=== PATIENT | female | born 1965 | race Caucasian/White ===

== ENCOUNTER 2018-10-27 16:30 | Outpatient (REF) | payer BC, SELFPAY ==
[2018-10-27 22:35] LABS: ALT 20 U/L (12-78); AST 15 U/L (15-37); Albumin 4.1 g/dL (3.4-5.0); Alkaline Phosphatase 74 U/L (46-116); Bilirubin, Total 0.4 mg/dL (0.2-1.0); Total Protein 7.3 g/dL (6.4-8.2)
== END 2018-10-27 16:50 ==
LOC: NCHCN 16:30
PROVIDERS: PCP Family Medicine; Visit Provider Registered Nurse
DX: B35.1 Tinea unguium (principal)
CPT/HCPCS: 80076

== ENCOUNTER 2018-11-30 12:30 | Outpatient (REF) | payer BC, SELFPAY ==
[2018-11-30 21:39] LABS: ALT 22 U/L (12-78); AST 14 U/L (15-37); Albumin 3.9 g/dL (3.4-5.0); Alkaline Phosphatase 73 U/L (46-116); Bilirubin, Direct 0.15 mg/dL (0.00-0.20); Bilirubin, Total 0.5 mg/dL (0.2-1.0); Total Protein 7.3 g/dL (6.4-8.2)
== END 2018-11-30 12:50 ==
LOC: NCHCN 12:30
PROVIDERS: PCP Family Medicine; Visit Provider Registered Nurse
DX: B35.1 Tinea unguium (principal)
CPT/HCPCS: 80076

== ENCOUNTER 2019-02-11 10:05 | Outpatient (REF) | payer MEDICAID, SELFPAY ==
[2019-02-11 22:16] LABS: Hemoglobin A1C 5.7 % (4.5-6.2)
--- NOTE | 2019-02-12 | PAPFT_PTH ---
PATIENT: Prudence Obrien LOC: [facility] U#:[id number] AGE/SX: 53/F ROOM: RE02/11/[address]: Ashley Carney : 1965 BED: DIS: 02/11/2019 SPEC #: [id number] RECD: 02/12/19 12:46 STATUS: CUONG REQ #: [id number] CHARLES: 02/12/19 00:[address]: Ashley Carney DEPT: [facility] Cytology RECD BY: Kim Copeland Tissues: 1 - CX/ENDOCX FOR PAP SMEARS Procedures: PAP THIN PREP/[facility] Screening HPV DNA PROBE Comments: [id number]
== END 2019-02-11 10:25 ==
LOC: NCHCN 10:05
PROVIDERS: PCP Family Medicine; Visit Provider Family Medicine
DX: Z00.00 Encounter for general adult medical examination without abnormal findings (principal); E66.01 Morbid (severe) obesity due to excess calories; Z13.1 Encounter for screening for diabetes mellitus; Z12.4 Encounter for screening for malignant neoplasm of cervix; Z11.51 Encounter for screening for human papillomavirus (HPV)
CPT/HCPCS: 82306; 88142; 83036; 87624

== ENCOUNTER 2020-02-15 23:07 | Outpatient (REF) | payer MEDICAID, SELFPAY ==
[2020-02-15 21:25] LABS: Hemoglobin A1C 5.5 % (<5.7)
[2020-02-15 21:41] LABS: ALT 28 U/L (14-59); AST 15 U/L (15-37); Alkaline Phosphatase 78 U/L (46-116); Anion Gap 7.4 mmol/L (3-11); BUN 11 mg/dL (7-18); Bilirubin, Total 0.5 mg/dL (0.2-1.0); CO2 29.6 mmol/L (21.0-32.0); CREATININE 0.91 mg/dL (0.55-1.02); Calcium 9.4 mg/dL (8.5-10.1); Chloride 103 mmol/L (98-107); Glucose 95 mg/dL (74-106); Potassium 4.1 mmol/L (3.5-5.1); Sodium 140 mmol/L (136-145); TSH 19.27 uIU/mL (0.36-3.74); Total Protein 7.3 g/dL (6.4-8.2)
[2020-02-17 05:18] LABS: Vitamin D 25 Total 12.3 ng/ml (30-100)
== END 2020-02-15 23:27 ==
LOC: NCHCN 23:07
PROVIDERS: PCP Family Medicine; Visit Provider Family Medicine
DX: E11.9 Type 2 diabetes mellitus without complications (principal); E55.9 Vitamin D deficiency, unspecified; Z13.220 Encounter for screening for lipoid disorders
CPT/HCPCS: 80053; 82306; 83036; 84443

== ENCOUNTER 2020-03-20 09:13 | Outpatient (REF) | payer MEDICAID, SELFPAY ==
[2020-03-20 21:58] LABS: TSH 4.17 uIU/mL (0.36-3.74)
== END 2020-03-20 09:33 ==
LOC: NCHCN 09:13
PROVIDERS: PCP Family Medicine; Visit Provider Family Medicine
DX: E03.9 Hypothyroidism, unspecified (principal)
CPT/HCPCS: 84443

== ENCOUNTER 2020-06-05 15:47 | Outpatient (REF) | payer MEDICAID, SELFPAY ==
[2020-06-05 14:40] LABS: TSH 4.06 uIU/mL (0.36-3.74)
== END 2020-06-05 15:48 | disposition home or self-care (01) ==
LOC: NCHCN 15:47
PROVIDERS: PCP Family Medicine; Visit Provider Family Medicine
DX: E03.9 Hypothyroidism, unspecified (principal)
CPT/HCPCS: 84443

== ENCOUNTER 2020-07-11 02:46 | Outpatient (CLI) | payer MEDICAID, SELFPAY | END 2020-07-11 02:47 | disposition home or self-care (01) | LOC: LBO 02:46 | PROVIDERS: PCP Family Medicine; Visit Provider Family Medicine | DX: E03.9 Hypothyroidism, unspecified (principal); Z01.83 Encounter for blood typing | CPT/HCPCS: 36415; 86900; 86901 ==

== ENCOUNTER 2020-10-02 15:44 | Outpatient (REF) | payer MEDICAID, SELFPAY ==
[2020-10-02 14:25] LABS: TSH 2.77 uIU/mL (0.36-3.74)
== END 2020-10-02 15:45 | disposition home or self-care (01) ==
LOC: NCHCN 15:44
PROVIDERS: PCP Family Medicine; Visit Provider Family Medicine
DX: E03.9 Hypothyroidism, unspecified (principal)
CPT/HCPCS: 84443

== ENCOUNTER 2021-02-20 12:29 | Outpatient (REF) | payer MEDICAID, SELFPAY ==
[2021-02-20 15:19] LABS: Calculated LDL 130 mg/dL (<100); Cholesterol 219 mg/dL (<200); HDL Cholesterol 67 mg/dL (40-60); Triglyceride 112 mg/dL (<150)
[2021-02-20 15:49] LABS: Hemoglobin A1C 5.7 % (<5.7)
== END 2021-02-20 12:30 | disposition home or self-care (01) ==
LOC: NCHCN 12:29
PROVIDERS: PCP Family Medicine; Visit Provider Family Medicine
DX: E55.9 Vitamin D deficiency, unspecified (principal); E66.01 Morbid (severe) obesity due to excess calories; Z13.1 Encounter for screening for diabetes mellitus; Z13.220 Encounter for screening for lipoid disorders; Z00.00 Encounter for general adult medical examination without abnormal findings
CPT/HCPCS: 80061; 83036; 84702

== ENCOUNTER 2022-05-07 15:25 | Outpatient (REF) | payer MEDICAID, SELFPAY ==
[2022-05-07 15:40] LABS: Calculated LDL 119 mg/dL (<100); Cholesterol 217 mg/dL (<200); HDL Cholesterol 80 mg/dL (40-60); TSH 4.71 uIU/mL (0.36-3.74); Triglyceride 94 mg/dL (<150)
== END 2022-05-07 15:26 | disposition home or self-care (01) ==
LOC: NCHCN 15:25
PROVIDERS: PCP Family Medicine; Visit Provider Family Medicine
DX: E03.9 Hypothyroidism, unspecified (principal); Z13.220 Encounter for screening for lipoid disorders
CPT/HCPCS: 80061; 84443

== ENCOUNTER 2022-05-15 09:45 | Outpatient (REF) | payer MEDICAID, SELFPAY ==
[2022-05-15 15:46] LABS: Anion Gap 5.2 mmol/L (3-11); BUN 10 mg/dL (7-18); CO2 24.8 mmol/L (21.0-32.0); Chloride 103 mmol/L (98-107); Glucose 102 mg/dL (74-106); Potassium 3.9 mmol/L (3.5-5.1); Sodium 133 mmol/L (136-145)
== END 2022-05-15 09:46 | disposition home or self-care (01) ==
LOC: NCHCN 09:45
PROVIDERS: PCP Family Medicine; Visit Provider Family Medicine
DX: E03.9 Hypothyroidism, unspecified (principal); E66.01 Morbid (severe) obesity due to excess calories; Z79.899 Other long term (current) drug therapy
CPT/HCPCS: 80048

== ENCOUNTER 2022-08-12 14:04 | Outpatient (REF) | payer MEDICAID, SELFPAY ==
[2022-08-12 22:29] LABS: TSH 2.18 uIU/mL (0.36-3.74)
== END 2022-08-12 14:05 | disposition home or self-care (01) ==
LOC: NCHCN 14:04
PROVIDERS: PCP Family Medicine; Visit Provider Family Medicine
DX: E03.9 Hypothyroidism, unspecified (principal)
CPT/HCPCS: 84443

== ENCOUNTER → 2023-04-23 00:55 | Outpatient (CLI) | payer BC, SELFPAY ==
--- NOTE | 2023-04-23 07:30 | DI.RAD_ITS ---
Exam(s) XR FOOT LT COMPLETE EXAM: XR FOOT LT COMPLETE CLINICAL HISTORY: Left foot pain,[id number]. TECHNIQUE: 2D digital imaging was performed. Three views. COMPARISON: No exams were available for comparison FINDINGS: BONES: No acute fracture is present. No bony destructive lesion is seen. Plantar calcaneal spur. JOINTS: No dislocation present. Minimal degenerative changes . Plantar arch is maintained. SOFT TISSUE: Normal. IMPRESSION: Heel spur. Minimal degenerative changes. DATA REPOSITORY: RADIATION DOSE DELIVERED:
== END ==
PROVIDERS: PCP Family Medicine; Visit Provider Podiatrist
DX: M79.672 Pain in left foot (principal); M77.32 Calcaneal spur, left foot
CPT/HCPCS: 73630

== ENCOUNTER 2023-05-08 14:07 | Outpatient (REF) | payer BC, SELFPAY ==
--- NOTE | 2023-05-08 09:30 | PAPFT_PTH ---
PATIENT: Prudence Obrien LOC: LOCATED WITHIN [facility]#:[id number] AGE/SX: 58/F ROOM: RE05/08/[address]: Thuy Lucero : 1965 BED: DIS: 05/08/2023 SPEC #: [id number] RECD: 05/08/23 17:49 STATUS: CUONG REAntonietta #: [id number] CHARLES: 05/08/23 09:[address]: Thuy Webster DEPT: [facility] Cytology RECD BY: Kim Copeland Tissues: 1 - CX/ENDOCX FOR PAP SMEARS Procedures: PAP THIN PREP/[facility] Screening HPV DNA PROBE Comments: [id number]
[2023-05-08 21:22] LABS: HCT 44.1 % (36.0-46.0); HGB 14.5 g/dL (11.2-15.7); MCH 30.4 pg (27.0-33.0); MCHC 32.9 % (32.0-36.0); MCV 93 fL (80-95); MPV 8.8 fL (8.0-11.0); Platelet Count 346 10^3/uL (130-400); RBC 4.77 10^6/uL (3.93-5.22); RDW 12.8 % (11.7-14.6); RDW-SD 43.8 fL; WBC 7.53 10^3/uL (4.4-10.8)
[2023-05-08 21:47] LABS: Hemoglobin A1C 5.6 % (<5.7)
[2023-05-08 21:48] LABS: ALT 36 U/L (14-59); AST 24 U/L (15-37); Albumin 3.9 g/dL (3.4-5.0); Alkaline Phosphatase 67 U/L (46-116); Anion Gap 8.5 mmol/L (3-11); BUN 17 mg/dL (7-18); Bilirubin, Total 0.5 mg/dL (0.2-1.0); CO2 25.5 mmol/L (21.0-32.0); Calcium 9.4 mg/dL (8.5-10.1); Calculated LDL 140 mg/dL (<100); Chloride 105 mmol/L (98-107); Cholesterol 233 mg/dL (<200); Glucose 108 mg/dL (74-106); HDL Cholesterol 72 mg/dL (40-60); Potassium 4.5 mmol/L (3.5-5.1); Sodium 139 mmol/L (136-145); Total Protein 7.9 g/dL (6.4-8.2); Triglyceride 108 mg/dL (<150)
== END 2023-05-08 14:08 | disposition home or self-care (01) ==
LOC: NCHCN 14:07
PROVIDERS: PCP Nurse Practitioner Family; Visit Provider Nurse Practitioner Family
DX: I10 Essential (primary) hypertension (principal); E03.9 Hypothyroidism, unspecified; R73.03 Prediabetes; Z13.220 Encounter for screening for lipoid disorders; Z13.0 Encounter for screening for diseases of the blood and blood-forming organs and certain disorders involving the immune mechanism
CPT/HCPCS: 80053; 80061; 85027; 88142; 83036; 84443; 87624

== ENCOUNTER 2024-06-01 16:45 | Outpatient (REF) | payer OTHER, SELFPAY ==
[2024-06-01 14:59] LABS: BUN 14 mg/dL (7-18); Calcium 9.2 mg/dL (8.5-10.1); Calculated LDL 112 mg/dL (<100); Chloride 104 mmol/L (98-107); Cholesterol 207 mg/dL (<200); Estimated GFR 64.49 (mL/min/1.73m2); Glucose 120 mg/dL (74-106); HDL Cholesterol 72 mg/dL (40-60); Potassium 4.2 mmol/L (3.5-5.1); Sodium 140 mmol/L (136-145); TSH 1.34 uIU/mL (0.36-3.74); Triglyceride 115 mg/dL (<150)
[2024-06-01 15:05] LABS: Hemoglobin A1C 5.7 % (<5.7)
== END 2024-06-01 16:46 | disposition home or self-care (01) ==
LOC: NCHCN 16:45
PROVIDERS: PCP Nurse Practitioner Family; Visit Provider Nurse Practitioner Family
DX: E03.9 Hypothyroidism, unspecified (principal); R73.03 Prediabetes; E66.9 Obesity, unspecified; I10 Essential (primary) hypertension
CPT/HCPCS: 80048; 80061; 83036; 84443